=== PATIENT | female | born 1980 | race African-American/Black ===

== ENCOUNTER 2018-04-09 14:15 | Emergency (ER) | payer SELFPAY ==
--- NOTE | 2018-04-09 15:52 | ER Document Report ---
ED Medical Screen (RME) - General Chief Complaint: Pain With Urination Stated Complaint: URINARY ISSUE Time Seen by Provider: 04/09/18 15:48 Mode of Arrival: Ambulatory Information source: Patient Notes: This is a 38-year-old female that presents with low back pain and concerns for UTI. She is 4 para 4 and her last normal menstrual period was last week. She does have a history of a bilateral tubal ligation. 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 Her pain is lower down. There is no urinary or fecal incontinence or retention. She denies any numbness to the inner thighs or any weakness to the lower extremities. TRAVEL OUTSIDE OF THE [place] IN LAST 30 DAYS: No - HPI Onset: Last week Onset/Duration: Gradual Quality of pain: Achy Severity: None Pain Level: Denies Associated Symptoms: denies: Abdominal pain, Chest pain, Shortness of breath Exacerbated by: Denies Relieved by: Denies Similar symptoms previously: Yes Recently seen / treated by doctor: No - Related Data Smoking: Non-smoker Frequency of alcohol use: None Drug Abuse: None Allergies/Adverse Reactions: No Known Allergies Allergy (Verified 04/09/18 14:17) Past Medical History - General Information source: Patient - Social History Cigarette use (# per day): No Chew tobacco use (# tins/day): No Frequency of alcohol use: None Drug Abuse: None Lives with: Family Family history: None - Medical History Medical History: Negative Surgical Hx: Negative Review of Systems - Review of Systems Constitutional: denies: Chills, Fever EENT: No symptoms reported Cardiovascular: No symptoms reported Respiratory: No symptoms reported Gastrointestinal: No symptoms reported Genitourinary: See HPI Female Genitourinary: No symptoms reported Musculoskeletal: See HPI Skin: No symptoms reported Hematologic/Lymphatic: No symptoms reported Neurological/Psychological: No symptoms reported Physical Exam - Vital signs Vitals: Temp Pulse Resp BP Pulse Ox 98.4 F 75 16 131/79 H 98 04/09/18 14:24 04/09/18 14:24 04/09/18 14:24 04/09/18 14:24 04/09/18 14:24 Notes: Physical exam: GENERAL: 38-year-old female, alert and oriented 3, no acute distress HEAD: Atraumatic, normocephalic. EYES: Pupils equal round and reactive to light, extraocular movements intact, sclera anicteric, conjunctiva are normal. ENT: TMs normal, nares patent, oropharynx clear without exudates. Moist mucous membranes. NECK: Normal range of motion, supple without obvious mass or JVD. LUNGS: Breath sounds clear to auscultation bilaterally and equal. No wheezes rales or rhonchi. HEART: Regular rate and rhythm without murmurs, rubs or gallops. ABDOMEN: Soft, normoactive bowel sounds. No tenderness to palpation. No guarding, no rebound. No masses appreciated. Back: No thoracic or lumbar spine tenderness or step-offs. Patient does have lower lumbar paraspinal tenderness. EXTREMITIES: Normal range of motion, no pitting or edema. No clubbing or cyanosis. NEUROLOGICAL: Cranial nerves II through XII grossly intact. Normal speech, moving all extremities. PSYCH: Normal mood, normal affect. SKIN: Warm, Dry, normal turgor, no rashes or lesions noted. Course - Re-evaluation Re-evalutation: 04/09/18 17:52 Note: I discussed results with the patient. She recently had a new relationship. I did inform her that we initially did not do a test for chlamydia and gonorrhea and I offered this to her, but she opted to wait because she was getting treated for this anyway and that she was going to come back for repeat test after treatment completion. Otherwise, the patient does look well. I have advised her to follow-up with a primary care doctor. - Vital Signs Vital signs: Temp Pulse Resp BP Pulse Ox 97.6 F 75 18 126/81 H 100 04/09/18 16:52 04/09/18 16:52 04/09/18 16:52 04/09/18 16:52 04/09/18 16:52 - Laboratory Laboratory results interpreted by me: 04/09/18 15:56 Urine Urobilinogen 4.0 H Ur Leukocyte Esterase SMALL H Urine Ascorbic Acid 40 H Doctor's Discharge - Discharge Clinical Impression: Trichomoniasis, Low back pain Condition: Stable Disposition: HOME, SELF-CARE Instructions: Trichomonas Infection ([facility]) Additional Instructions: As we discussed, the urine showed trichomoniasis. See the instruction sheet on trichomonas. We did not test for chlamydia and gonorrhea today (as we discussed), but you were treated for these. The important thing is that after you are done with the antibiotics, that she get retested for any STD. I would follow-up with your primary care doctor or the health department or you can come back to the emergency room when the antibiotics are done. Return to the emergency room for any problems. The x-rays of your lower spine look good. Prescriptions: Metronidazole 500 mg PO BID #14 tablet Referrals: LOCAL,NO [NO LOCAL MD] - Follow up as needed
[2018-04-09 16:12] LABS: APPEARANCE,URINE SLIGHTLY-CLOUDY; BILIRUBIN,URINE NEGATIVE (NEGATIVE); COLOR,URINE YELLOW; GLUCOSE, URINE NEGATIVE (NEGATIVE); KETONES,URINE NEGATIVE (NEGATIVE); LEUKOCYTE ESTERASE,URINE SMALL (NEGATIVE); NITRITE,URINE NEGATIVE (NEGATIVE); PROTEIN,URINE NEGATIVE (NEGATIVE); TRICHOMONAS, URINE PRESENT /HPF; URINE SPECIFIC GRAVITY 1.021
--- NOTE | 2018-04-09 16:35 | RADIOLOGY REPORT (SQ) ---
EXAM DESCRIPTION: L SPINE WHOLE COMPLETED DATE/TIME: 04/09/2018 4:26 pm REASON FOR STUDY: low back pain COMPARISON: None. NUMBER OF VIEWS: Five views including obliques. TECHNIQUE: AP, lateral, oblique, and sacral radiographic images acquired of the lumbar spine. LIMITATIONS: None. FINDINGS: MINERALIZATION: Normal. SEGMENTATION: Normal. No transitional anatomy. ALIGNMENT: Normal. VERTEBRAE: Maintained height. No fracture or worrisome bone lesion. DISCS: Preserved height. No significant osteophytes or end plate irregularity. POSTERIOR ELEMENTS: Pedicles and facets are intact. No pars defect or posterior arch defects. HARDWARE: None in the spine. PARASPINAL SOFT TISSUES: Normal. PELVIS: Intact as visualized. No fractures or worrisome bone lesions. SI joints intact. OTHER: No other significant finding. IMPRESSION: NORMAL 5 VIEW LUMBAR SPINE. TECHNICAL DOCUMENTATION: JOB ID: [id number] PAK- All Rights Reserved Reading location - IP/workstation name: [email or web address]
[2018-04-09] MEDS ORDERED: CEFTRIAXONE INJ 250 MG VIAL IM ONE (16:51)
[2018-04-09] MEDS ORDERED: AZITHROMYCIN 1 GM SUSP PACKET PO ONE (16:52)
[2018-04-09 16:53] VITALS: BP 126/81
[2018-04-09] MEDS ORDERED: METRONIDAZOLE 500 MG TABLET PO ONE (16:59)
[2018-04-09] MEDS ORDERED: LIDOCAINE 1% INJ-PF (10 MG/ML) 30 ML SDV INFIL ONE (17:11)
== END 2018-04-09 17:20 | disposition home or self-care (01) ==
LOC: ER 14:15
DX: A59.00 Urogenital trichomoniasis, unspecified (principal); M54.5 Low back pain; Z98.51 Tubal ligation status
CPT/HCPCS: 99283; 96372; 87086; 81025; 81001; 72110; J3490; Q0144; J0696

== ENCOUNTER 2018-06-03 08:36 | Emergency (ER) | payer SELFPAY ==
--- NOTE | 2018-06-03 09:14 | ER Document Report ---
ED GI/ - General Chief Complaint: Vaginal Discharge Stated Complaint: BACK PAIN Time Seen by Provider: 06/03/18 09:04 TRAVEL OUTSIDE OF THE [place] IN LAST 30 DAYS: No - HPI Notes: 06/03/18 09:10 38-year-old female presents to the ER with vaginal discharge and a little bit of low back pain. Patient stated that she was treated for Trichomonas about a month ago. She keeps getting reinfected she has not had true sexual contact in a year and 4 months. She has been using sexual toys. She thinks her toys may be infected she is through them all away but would like to be treated again. She denies any abdominal pain no nausea vomiting fever no chills. No diarrhea or constipation. No hematuria dysuria. She is having a little bit of clear vaginal discharge. - Related Data Allergies/Adverse Reactions: No Known Allergies Allergy (Verified 06/03/18 09:23) Past Medical History - Social History Smoking Status: Unknown if Ever Smoked Chew tobacco use (# tins/day): No Frequency of alcohol use: None Drug Abuse: None Family History: None Patient has suicidal ideation: No Patient has homicidal ideation: No Pulmonary Medical History: Reports: Hx Asthma Renal/ Medical History: Denies: Hx Peritoneal Dialysis Past Surgical History: Reports: Hx Section - x 3, Hx Tubal Ligation Review of Systems - Review of Systems Constitutional: denies: Chills, Fever Cardiovascular: denies: Chest pain Respiratory: denies: Short of breath Genitourinary: denies: Dysuria Female Genitourinary: Vaginal bleeding, Vaginal odor Musculoskeletal: Back pain -: Yes All other systems reviewed and negative Physical Exam - Vital signs Vitals: Temp Pulse Resp BP Pulse Ox 98.8 F 82 16 109/83 98 06/03/18 08:49 06/03/18 08:49 06/03/18 08:49 06/03/18 08:49 06/03/18 08:49 - Notes Notes: GENERAL_APPEARANCE: well_nourished, alert, cooperative, no_acute_distress, no_ obvious_discomfort. VITALS: reviewed, see vital signs table. HEAD: no_swelling\tenderness on the head. EYES: conjunctiva_clear. NOSE: no_nasal_discharge. MOUTH: (-)decreased moisture. THROAT: no_tonsilar_inflammation, no_airway_obstruction. no_lymphadenopathy NECK: supple, no_neck_tenderness, (-)thyromegaly. BACK: no_back_tenderness. CHEST_WALL: no_chest_tenderness. LUNGS: no_wheezing, no_rales, no_rhonchi, (-)accessory muscle use, good air exchange bilateral. HEART: normal_rate, normal_rhythm, normal_S1, normal_S2, (-)S3, (-)S4, no_ murmur, no_rub. ABDOMEN: normal_BS, soft, no_abd_tenderness, (-)guarding, (-)rebound, no_ organomegaly, no_abd_masses. FEMALE : OS is closed, neg cervicitis, thick discharge EXTREMITIES: no_swelling\tenderness in the extremities, no_edema. SKIN: warm, dry, good_color, no_rash. MENTAL_STATUS: speech_clear, oriented_X_3, normal_affect, responds_ appropriately to questions. Course - Re-evaluation Re-evalutation: 06/03/18 09:13 38-year-old female presents with concern for reinfection with trichomonas. She is thrown away all her sexual toys. She has not had true intercourse in a year and 4 months. We will do a pelvic exam and take cultures and wet prep. We will treat her presumptively. No inter coarse for 1yr and 4 months. Low risk untreated chlamydia. We will treat for Trichomonas. 06/03/18 10:46 - Vital Signs Vital signs: Temp Pulse Resp BP Pulse Ox 98.3 F 79 18 113/67 98 06/03/18 09:38 06/03/18 09:38 06/03/18 09:38 06/03/18 09:38 06/03/18 09:38 - Laboratory Laboratory results interpreted by me: 06/03/18 09:15 Urine Urobilinogen 4.0 H Ur Leukocyte Esterase SMALL H Urine Ascorbic Acid 40 H Discharge - Discharge Clinical Impression: Trichomonal cervicitis Condition: Good Disposition: HOME, SELF-CARE Instructions: Trichomonas Infection ([facility]) Prescriptions: Metronidazole [Flagyl 500 mg Tablet] 500 mg PO TID #21 tablet
[2018-06-03 09:56] LABS: APPEARANCE,URINE CLOUDY; BILIRUBIN,URINE NEGATIVE (NEGATIVE); COLOR,URINE YELLOW; GLUCOSE, URINE NEGATIVE (NEGATIVE); KETONES,URINE NEGATIVE (NEGATIVE); LEUKOCYTE ESTERASE,URINE SMALL (NEGATIVE); NITRITE,URINE NEGATIVE (NEGATIVE); PROTEIN,URINE NEGATIVE (NEGATIVE); URINE SPECIFIC GRAVITY 1.027
[2018-06-03] MEDS ORDERED: METRONIDAZOLE 500 MG TABLET PO ONE (10:00)
[2018-06-03 10:07] LABS: T.VAGINALIS (WET MOUNT) TRICHOMONAS SEEN; YEAST (WET MOUNT) NO YEAST SEEN
[2018-06-03 10:08] LABS: EPITHELIALS (WET MOUNT) 3+ EPITHELIALS SEEN; WBCS (WET MOUNT) FEW WBCS SEEN
[2018-06-03 10:55] VITALS: BP 116/67
[2018-06-03 11:22] LABS: CHLAM PCR NOT DETECTED (NOT DETECT); GON PCR NOT DETECTED (NOT DETECT)
== END 2018-06-03 10:56 | disposition home or self-care (01) ==
LOC: ER 08:36
DX: A59.09 Other urogenital trichomoniasis (principal); Z98.51 Tubal ligation status
CPT/HCPCS: 81001; 81025; 87210; 87491; 87591; 99283

== ENCOUNTER 2018-11-29 08:27 | Emergency (ER) | payer SELFPAY ==
[2018-11-29] MEDS ORDERED: IBUPROFEN 800 MG TABLET PO ONE (09:11)
[2018-11-29] MEDS ORDERED: TETRACAINE HCL 0.5% OPH SOLN 4 ML OD ONE (09:11)
--- NOTE | 2018-11-29 09:20 | ER Document Report ---
HPI - HPI Patient complains to provider of: ear, sore throat Time Seen by Provider: 11/29/18 09:00 Onset: Other - 2 days Onset/Duration: Worse Quality of pain: Achy Pain Level: 5 Context: Patient presents complaining of right-sided facial pain, sore throat and ear pain. Patient complains of pain to right side of face. Patient denies any fever. Patient states that she did sleep on a heating pad last night. Patient states she woke today with some right side eye discomfort and tearing. Patient denies any use of contact lenses and states that she has not been wearing her glasses for some time as they have broken. Associated Symptoms: Earache, Sore throat, Other - dental pain. denies: Fever, Vomiting Exacerbated by: Denies Relieved by: Denies Similar symptoms previously: No Recently seen / treated by doctor: No - ROS ROS below otherwise negative: Yes Systems Reviewed and Negative: Yes All other systems reviewed and negative - CONSTITUTIONAL Constitutional: DENIES: Fever - EENT EENT: REPORTS: Sore Throat, Ear Pain, Eye problems - NEURO Neurology: DENIES: Vision blurred, Dizzinesss / Vertigo - RESPIRATORY Respiratory: DENIES: Coughing - GASTROINTESTINAL Gastrointestinal: DENIES: Nausea, Patient vomiting - REPRODUCTIVE Reproductive: DENIES: : - MUSCULOSKELETAL Musculoskeletal: DENIES: Back Pain, Neck Pain - DERM Skin Color: Normal Skin Problems: None Past Medical History - General Information source: Patient - Social History Smoking Status: Current Every Day Smoker Chew tobacco use (# tins/day): No Smoking Education Provided: Yes Frequency of alcohol use: None Drug Abuse: None Occupation: [employer] Family History: None Patient has suicidal ideation: No Patient has homicidal ideation: No Pulmonary Medical History: Reports: Hx Asthma Renal/ Medical History: Denies: Hx Peritoneal Dialysis Past Surgical History: Reports: Hx Section - x 3, Hx Tubal Ligation Vertical Provider Document - CONSTITUTIONAL Agree With Documented VS: Yes Exam Limitations: No Limitations General Appearance: WD/WN, No Apparent Distress - INFECTION CONTROL TRAVEL OUTSIDE OF THE [place] IN LAST 30 DAYS: No - HEENT HEENT: Atraumatic, Normocephalic, Pharyngeal Tenderness. negative: Pharyngeal Exudate, Pharyngeal Erythema, Tympanic Membrane Red, Tympanic Membrane Bulging Mouth Diagram: 1 - A widespread decay with dental fracture, no drainable abscess, tenderness with palpation, no sublingual or submental swelling Notes: Mild inflammation of conjunctiva, Sclera clear, no obvious mucoid drainage, no excessive tearing noted, PERRL, EOMI, No fluoroscein uptake, no corneal ulcer, abrasion, foreign body or dendrite. Lids everted during examination. - NECK Neck: Normal Inspection, Supple. negative: Lymphadenopathy-Left, Lymphadenopathy-Right - RESPIRATORY Respiratory: Breath Sounds Normal, No Respiratory Distress - CARDIOVASCULAR Cardiovascular: Regular Rate, Regular Rhythm - MUSCULOSKELETAL/EXTREMETIES Musculoskeletal/Extremeties: MAEW - NEURO Level of Consciousness: Awake, Alert, Appropriate Motor/Sensory: No Motor Deficit - DERM Integumentary: Warm, Dry Notes: Erythema to right inferior orbital area, no orbital tenderness with palpation, no proptosis or ptosis Course - Re-evaluation Re-evalutation: 11/29/18 09:29 Patient presents with extensive dental decay, gingival inflammation without abscess and dental tenderness. Suspect that patient's symptoms are related to infected dental caries at this time. Patient does have mild erythema to apple of her right cheek that I suspect is attributed to superficial stanton from sleeping on a heating pad last night. Patient educated on importance of avoiding this to avoid any worsening stanton. No concern for shingles at this time, patient was educated on signs to look out for that she would need to return immediately for recheck. 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 Patient with mild inflammation of conjunctive of the right eye, will cover with topical antibiotic for conjunctivitis, patient does report wiping her eyes ,clearing drainage, although no drainage was noted on examination. 11/29/18 09:34 - Vital Signs Vital signs: Temp Pulse Resp BP Pulse Ox 98.1 F 81 16 130/92 H 100 11/29/18 08:39 11/29/18 08:39 11/29/18 08:39 11/29/18 08:39 11/29/18 08:39 Discharge - Discharge Clinical Impression: Toothache Conjunctivitis Qualifiers: Conjunctivitis type: unspecified Laterality: right Qualified Code(s): H10.9 - Unspecified conjunctivitis Condition: Stable Disposition: HOME, SELF-CARE Instructions: Conjunctivitis ([facility]), Eyedrop Use ([facility]), Oral Narcotic Medication ([facility]), Penicillin V K ([facility]), Toothache ([facility]) Additional Instructions: Return immediately for any new or worsening symptoms Followup with your primary care provider, call tomorrow to make a followup appointment Follow-up with your dental care provider Follow-up with your software integration developer Avoid sleeping on heating pads to prevent any potential stanton to the face. Prescriptions: Acetaminophen with Codeine [Tylenol #3 Tablet] 1 each PO Q6HP PRN #15 tablet PRN Reason: Naproxen [Naprosyn 250 Nmg Tablet] 1 tab PO BID #14 tablet Penicillin V Potassium [Penicillin Vk 500 mg Tablet] 500 mg PO BID #20 tablet Polymyxin B Sulfate/Tmp [Polytrim Oph Soln 10 ml] 1 drop RT_EYE ASDIR #1 bottle Forms: Smoking Cessation Education, Return to Work Referrals: [facility] [Provider Group] - Follow up as needed [facility] [Provider Group] - Follow up as needed [facility] [Provider Group] - Follow up as needed
[2018-11-29] MEDS ORDERED: PENICILLIN V POTASSIUM 500 MG TABLET PO ONE (09:33)
[2018-11-29 09:50] VITALS: BP 128/88
== END 2018-11-29 09:50 | disposition home or self-care (01) ==
LOC: ER 08:27
DX: H10.9 Unspecified conjunctivitis (principal); K08.89 Other specified disorders of teeth and supporting structures; R51 Headache; J02.9 Acute pharyngitis, unspecified; H92.09 Otalgia, unspecified ear; F17.200 Nicotine dependence, unspecified, uncomplicated; J45.909 Unspecified asthma, uncomplicated
CPT/HCPCS: 99282; J3490

== ENCOUNTER 2019-05-04 13:26 | Emergency (ER) | payer SELFPAY ==
[2019-05-04 13:34] VITALS: BP 123/74
[2019-05-04] MEDS ORDERED: NORMAL SALINE 1000 ML 1,000 ML IV ONE (13:58)
--- NOTE | 2019-05-04 14:07 | ER Document Report ---
ED Medical Screen (RME) - General Chief Complaint: Palpitations Stated Complaint: RAPID HEART RATE Time Seen by Provider: 05/04/19 13:52 Mode of Arrival: Ambulatory Information source: Patient Notes: Patient presents with concern about dehydration. Patient states she was at work and she felt like her pulse was racing. Patient states she spoke with an EMS person and they made her concerned that she might be possibly. Patient states that her mother had a tubal and she had this concern as well. Patient reports having her menstrual period last week. Patient does report some diarrhea. No nausea or vomiting. hx: Anxiety, tubal ligation I have greeted and performed a rapid initial assessment of this patient. A comprehensive ED assessment and evaluation of the patient, analysis of test results and completion of the medical decision making process will be conducted by additional ED providers. TRAVEL OUTSIDE OF THE [place] IN LAST 30 DAYS: No - Related Data Allergies/Adverse Reactions: No Known Allergies Allergy (Verified 05/04/19 13:28) Past Medical History - Social History Frequency of alcohol use: None Drug Abuse: None Family history: None Pulmonary Medical History: Reports: Hx Asthma Renal/ Medical History: Denies: Hx Peritoneal Dialysis Past Surgical History: Reports: Hx Section - x 3, Hx Tubal Ligation Physical Exam - Vital signs Vitals: Temp Pulse Resp BP Pulse Ox 97.9 F 80 16 123/74 96 05/04/19 13:33 05/04/19 13:33 05/04/19 13:33 05/04/19 13:33 05/04/19 13:33 - Cardiovascular Rhythm: Regular. No: Tachycardia Heart sounds: S1 appreciated, S2 appreciated Course - Vital Signs Vital signs: Temp Pulse Resp BP Pulse Ox 97.9 F 80 16 123/74 96 05/04/19 13:33 05/04/19 13:33 05/04/19 13:33 05/04/19 13:33 05/04/19 13:33
[2019-05-04 14:43] LABS: ABSOLUTE BASOPHILS # (AUTO) 0.1 10^3/uL (0.0-0.2); ABSOLUTE EOSINOPHILS # (AUTO) 0.1 10^3/uL (0.0-0.6); ABSOLUTE LYMPHOCYTES (AUTO) 2.5 10^3/uL (0.5-4.7); ABSOLUTE MONOCYTES (AUTO) 0.9 10^3/uL (0.1-1.4); ABSOLUTE NEUT (AUTO) 5.4 10^3/uL (1.7-8.2); BASOPHILS % (AUTO) 0.6 % (0-2); EOSINOPHILS % (AUTO) 1.1 % (0-6); HEMATOCRIT 38.6 % (36.0-47.0); HEMOGLOBIN 13.4 g/dL (12.0-15.5); LYMPHOCYTES % (AUTO) 28.2 % (13-45); MEAN CORPUSCULAR HEMOGLOBIN 32.3 pg (27.0-33.4); MEAN CORPUSCULAR HGB CONC 34.6 g/dL (32.0-36.0); MEAN CORPUSCULAR VOLUME 93 fl (80-97); MONOCYTES % (AUTO) 9.6 % (3-13); PLATELET COUNT 322 10^3/uL (150-450); RED BLOOD COUNT 4.13 10^6/uL (3.72-5.28); RED CELL DISTRIBUTION WIDTH 12.9 % (11.5-14.0); SEGMENTED NEUTROPHILS % (AUTO) 60.5 % (42-78); TOTAL CELLS COUNTED % (AUTO) 100 %
[2019-05-04 14:53] LABS: APPEARANCE,URINE SLIGHTLY-CLOUDY; BILIRUBIN,URINE SMALL (NEGATIVE); GLUCOSE, URINE NEGATIVE (NEGATIVE); KETONES,URINE TRACE mg/dL (NEGATIVE); LEUKOCYTE ESTERASE,URINE NEGATIVE (NEGATIVE); NITRITE,URINE NEGATIVE (NEGATIVE); PROTEIN,URINE 30 mg/dL (NEGATIVE)
[2019-05-04 14:55] LABS: COLOR,URINE DARK YELLOW
[2019-05-04 15:06] LABS: ALANINE AMINOTRANSFERASE 25 U/L (9-52); ALBUMIN 4.4 g/dL (3.5-5.0); ALKALINE PHOSPHATASE 91 U/L (38-126); ANION GAP 7 (5-19); ASPARTATE AMINO TRANSFERASE 17 U/L (14-36); BILIRUBIN,DIRECT 0.3 mg/dL (0.0-0.4); BILIRUBIN,TOTAL 0.7 mg/dL (0.2-1.3); BLOOD UREA NITROGEN 9 mg/dL (7-20); CALCIUM 9.6 mg/dL (8.4-10.2); CARBON DIOXIDE 28 mmol/L (22-30); CHLORIDE 102 mmol/L (98-107); GLUCOSE 92 mg/dL (75-110); POTASSIUM 4.3 mmol/L (3.6-5.0); SODIUM 136.7 mmol/L (137-145); TOTAL PROTEIN 7.7 g/dL (6.3-8.2)
--- NOTE | 2019-05-05 00:42 | EKG REPORT ---
SEVERITY:- NORMAL ECG - SINUS RHYTHM : Confirmed by: Estefania Lord 05-May-2019 00:41:19
== END 2019-05-04 16:16 | disposition left against medical advice (07) ==
LOC: ER 13:26
DX: R00.2 Palpitations (principal); F41.9 Anxiety disorder, unspecified; Z98.51 Tubal ligation status
CPT/HCPCS: 93005; 99281; 96360; 36415; 84443; 84703; 85025; 80053; 81001; 93010; J7030